=== PATIENT | male | born 1990 | race Caucasian/White ===

== ENCOUNTER 2016-11-06 22:49 | Emergency (ER) | payer OTHER ==
[~2016-11-06] VITALS: Ht 172.7 cm; Wt 70.5 kg
[2016-11-06 22:56] VITALS: BP 125/82; TEMP 98.7
[2016-11-07] MEDS ORDERED: FLEXERIL 1010 MG/TAB PO (01:15)
[2016-11-07 01:29] VITALS: PULSE 60
== END 2016-11-07 01:30 | disposition home or self-care (01) ==
LOC: COL.ER 22:49
DX: S39.012A Strain of muscle, fascia and tendon of lower back, initial encounter (principal); X50.3XXA Overexertion from repetitive movements, initial encounter; Y93.02 Activity, running
CPT/HCPCS: J1885; J2360

== ENCOUNTER 2017-07-24 19:06 | Emergency (ER) | payer SELFPAY ==
[~2017-07-24] VITALS: Ht 172.7 cm; Wt 68.2 kg
[~2017-07-24 19:06] MED LIST: FLEXERIL 1010 MG/TAB PO
[2017-07-24 19:11] VITALS: TEMP 97.9
[2017-07-24] MEDS ORDERED: FLEXERIL 1010 MG/TAB PO (19:57)
[2017-07-24 20:13] VITALS: BP 111/65; PULSE 80
== END 2017-07-24 20:14 | disposition home or self-care (01) ==
LOC: COL.ER 19:06
DX: M54.5 Low back pain (principal)
CPT/HCPCS: J1885; J2360

== ENCOUNTER 2017-10-11 19:37 | Emergency (ER) | payer SELFPAY ==
[~2017-10-11] VITALS: Ht 172.7 cm; Wt 68.2 kg
[2017-10-11 19:39] VITALS: TEMP 98.4
[2017-10-11 20:12] LABS: BASO % 0.3 % (0.0-2.0); EOS # 0.1 (0.0-0.7); EOS % 1.6 % (0-4.0); GRAN # 5.3 (1.4-6.5); GRAN % 61.4 % (42.2-75.2); HEMATOCRIT 42.1 % (42.0-52.0); HEMOGLOBIN 14.3 g/dl (13.5-18.0); LYMPH # 2.5 (1.2-3.4); LYMPH % 29.4 % (20.0-51.0); MEAN CELL VOLUME 86 fl (80.0-100.0); MEAN CORPUSCULAR HEMOGLOBIN 29 pg (27.0-31.0); MEAN CORPUSCULAR HGB CONC 34 g/dl (33.0-37.0); MEAN PLATELET VOLUME 9.6 fl (7.4-10.4); MONO # 0.6 (0.1-0.6); MONO % 7.1 % (1.7-9.3); PLATELET COUNT 259 K/mm3 (130-400); RED BLOOD COUNT 4.87 M/mm3 (4.20-5.60); REDCELL DISTRIBUTION WIDTH-CV 11.9 % (11.5-14.5)
[2017-10-11 20:20] LABS: COLLECTION METHOD CLEAN CATCH
[2017-10-11 20:26] LABS: PH 7 (5-8); SQUAMOUS EPITHELIAL None Seen /hpf; URINE APPEARANCE Clear; URINE BACTERIA None Seen /hpf; URINE BILIRUBIN Negative (NEGATIVE); URINE BLOOD Negative (NEGATIVE); URINE COLOR Straw; URINE GLUCOSE Negative (NEGATIVE); URINE KETONE Negative (NEGATIVE); URINE LEUKOCYTE ESTERASE Negative (NEGATIVE); URINE NITRATE Negative (NEGATIVE); URINE PROTEIN(semi-quant) Negative (NEGATIVE); URINE RBC None Seen /hpf; URINE UROBILINOGEN Negative (NEGATIVE)
[2017-10-11 20:30] LABS: ACETAMINOPHEN < 10 ug/mL (10-30); ALANINE AMINOTRANSFERASE 23 U/L (21-72); ALBUMIN 4.3 gm/dL (3.5-5.0); ALCOHOL(ethanol),MEDICAL < 10 mg/dL; ALKALINE PHOSPHATASE 51 U/L (50-136); ANION GAP 11 mmol/L (7-16); AST,SGOT 31 U/L (15-37); BILIRUBIN,TOTAL 0.3 mg/dL (0.0-1.0); BLOOD UREA NITROGEN 28 mg/dL (9-20); CALCIUM 9.5 mg/dL (8.4-10.2); CARBON DIOXIDE 28 mmol/L (22-30); CHLORIDE 100 mmol/L (98-107); CREATININE, serum 1.02 mg/dL (0.66-1.25); GLUCOSE 88 mg/dL (74-106); SALICYLATE < 1.0 mg/dL; SODIUM 139 mmol/L (137-145); TOTAL PROTEIN 7.4 gm/dL (6.4-8.2)
[2017-10-11 20:33] LABS: TRICYCLIC ANTIDEPRESS URINE NEGATIVE
[2017-10-11 23:30] VITALS: BP 137/67; PULSE 88
== END 2017-10-11 23:38 | disposition home or self-care (01) ==
LOC: COL.ER 19:37
PROVIDERS: Emergency Medicine
DX: F32.9 Major depressive disorder, single episode, unspecified (principal); R45.851 Suicidal ideations

== ENCOUNTER 2017-10-29 16:58 | Emergency (ER) | payer BC ==
[~2017-10-29] VITALS: Ht 172.7 cm; Wt 64.1 kg
[2017-10-29 17:17] VITALS: TEMP 98.9
[2017-10-29 17:52] LABS: COLLECTION METHOD CLEAN CATCH
[2017-10-29 17:57] LABS: MUCOUS Present /lpf; PH 5 (5-8); SQUAMOUS EPITHELIAL 0-2 /hpf; URINE APPEARANCE Clear; URINE BACTERIA None Seen /hpf; URINE BILIRUBIN Negative (NEGATIVE); URINE BLOOD Negative (NEGATIVE); URINE COLOR Yellow; URINE GLUCOSE Negative (NEGATIVE); URINE KETONE Trace (NEGATIVE); URINE LEUKOCYTE ESTERASE Negative (NEGATIVE); URINE NITRATE Negative (NEGATIVE); URINE PROTEIN(semi-quant) Negative (NEGATIVE); URINE RBC 0-2 /hpf; URINE UROBILINOGEN Negative (NEGATIVE)
[2017-10-29 18:05] LABS: BASO % 0.3 % (0.0-2.0); EOS # 0.1 (0.0-0.7); EOS % 0.7 % (0-4.0); GRAN # 7.4 (1.4-6.5); GRAN % 72.7 % (42.2-75.2); HEMATOCRIT 44.4 % (42.0-52.0); LYMPH # 2.2 (1.2-3.4); LYMPH % 21.6 % (20.0-51.0); MEAN CELL VOLUME 86 fl (80.0-100.0); MEAN CORPUSCULAR HEMOGLOBIN 29 pg (27.0-31.0); MEAN CORPUSCULAR HGB CONC 34 g/dl (33.0-37.0); MEAN PLATELET VOLUME 9.7 fl (7.4-10.4); MONO # 0.5 (0.1-0.6); MONO % 4.5 % (1.7-9.3); PLATELET COUNT 284 K/mm3 (130-400); RED BLOOD COUNT 5.16 M/mm3 (4.20-5.60)
[2017-10-29 18:05] LABS: TRICYCLIC ANTIDEPRESS URINE NEGATIVE
[2017-10-29 18:14] LABS: ALANINE AMINOTRANSFERASE 23 U/L (21-72); ALBUMIN 4.5 gm/dL (3.5-5.0); ALKALINE PHOSPHATASE 54 U/L (50-136); ANION GAP 13 mmol/L (7-16); AST,SGOT 26 U/L (15-37); BILIRUBIN,TOTAL 0.6 mg/dL (0.0-1.0); BLOOD UREA NITROGEN 17 mg/dL (9-20); CALCIUM 9.7 mg/dL (8.4-10.2); CARBON DIOXIDE 28 mmol/L (22-30); CHLORIDE 102 mmol/L (98-107); CREATININE, serum 1.05 mg/dL (0.66-1.25); GLUCOSE 98 mg/dL (74-106); SODIUM 142 mmol/L (137-145)
[2017-10-29 18:20] LABS: ACETAMINOPHEN < 10 ug/mL (10-30); ALCOHOL(ethanol),MEDICAL < 10 mg/dL; SALICYLATE < 1.0 mg/dL
[2017-10-30 15:20] VITALS: BP 112/64
[2017-10-30 16:00] VITALS: PULSE 84
== END 2017-10-30 16:00 ==
LOC: COL.ER 16:58
PROVIDERS: Physician Assistant
DX: R45.851 Suicidal ideations (principal)

== ENCOUNTER 2020-10-14 07:43 | Emergency (ER) | payer SELFPAY ==
[~2020-10-14] VITALS: Ht 172.7 cm; Wt 66.4 kg
[2020-10-14 07:50] VITALS: TEMP 98.1
[2020-10-14 08:45] LABS: BASO % 0.6 % (0.0-2.0); EOS # 0.1 (0.0-0.7); EOS % 2.1 % (0-4.0); GRAN % 63.8 % (42.2-75.2); HEMATOCRIT 45.5 % (42.0-52.0); HEMOGLOBIN 14.8 g/dl (13.5-18.0); LYMPH # 1.6 (1.2-3.4); LYMPH % 25.2 % (20.0-51.0); MEAN CELL VOLUME 89 fl (80.0-100.0); MEAN CORPUSCULAR HEMOGLOBIN 29 pg (27.0-31.0); MEAN CORPUSCULAR HGB CONC 33 g/dl (33.0-37.0); MEAN PLATELET VOLUME 9.8 fl (7.4-10.4); MONO # 0.5 (0.1-0.6); PLATELET COUNT 269 K/mm3 (130-400); RED BLOOD COUNT 5.11 M/mm3 (4.20-5.60)
[2020-10-14 08:54] LABS: COLLECTION METHOD CLEAN CATCH
[2020-10-14 08:58] LABS: ALANINE AMINOTRANSFERASE 12 U/L (4-49); ALBUMIN 4.4 gm/dL (3.5-5.0); ALKALINE PHOSPHATASE 50 U/L (50-136); ANION GAP 6 mmol/L (7-16); AST,SGOT 32 U/L (15-37); BILIRUBIN,TOTAL 0.6 mg/dL (0.0-1.0); BLOOD UREA NITROGEN 19 mg/dL (9-20); CALCIUM 9.3 mg/dL (8.4-10.2); CARBON DIOXIDE 24 mmol/L (22-30); CHLORIDE 110 mmol/L (98-107); GLUCOSE 105 mg/dL (74-106); POTASSIUM 3.9 mmol/L (3.4-5.0); SODIUM 140 mmol/L (137-145); TOTAL PROTEIN 7.6 gm/dL (6.4-8.2)
[2020-10-14 09:03] LABS: MUCOUS Present /lpf; PH 6 (5-8); SQUAMOUS EPITHELIAL 0-2 /hpf; URINE APPEARANCE Clear; URINE BACTERIA None Seen /hpf; URINE BILIRUBIN Negative (NEGATIVE); URINE BLOOD Negative (NEGATIVE); URINE COLOR Yellow; URINE GLUCOSE Negative (NEGATIVE); URINE KETONE Trace (NEGATIVE); URINE LEUKOCYTE ESTERASE Negative (NEGATIVE); URINE NITRATE Negative (NEGATIVE); URINE PROTEIN(semi-quant) Negative (NEGATIVE); URINE RBC 0-2 /hpf; URINE UROBILINOGEN Negative (NEGATIVE)
[2020-10-14 09:11] LABS: TROPONIN-I < 0.012 ng/mL (0.000-0.035)
[2020-10-14 10:52] VITALS: BP 100/64; PULSE 77
== END 2020-10-14 11:05 | disposition home or self-care (01) ==
LOC: COL.ER 07:43
PROVIDERS: Family Medicine
DX: R07.89 Other chest pain (principal); Z20.822 Contact with and (suspected) exposure to COVID-19
CPT/HCPCS: J1885; J7120